=== PATIENT | male | born 1960 | race Caucasian/White ===

== ENCOUNTER 2021-05-20 17:05 | Emergency (ER) | payer OTHER | END 2021-05-20 19:11 | disposition home or self-care (01) | LOC: ERS 17:05 | DX: S52.612A Displaced fracture of left ulna styloid process, initial encounter for closed fracture (principal); S52.502A Unspecified fracture of the lower end of left radius, initial encounter for closed fracture; V89.2XXA Person injured in unspecified motor-vehicle accident, traffic, initial encounter | CPT/HCPCS: 25600; 70450; 72125; G0390 ==